=== PATIENT | female | born 1970 | race Caucasian/White ===

== ENCOUNTER → 2022-10-28 | Outpatient (CLI) | payer SELFPAY ==
[2022-10-28 14:06] LABS: BASO % 0.5 % (0.0-1.0); EOS # 0.1 10^3/uL (0.0-0.5); EOS % 1.4 % (0.0-3.0); HEMATOCRIT 44.3 % (36.0-47.0); HEMOGLOBIN 14.6 g/dl (12.0-15.5); LYMPH # 1.9 10^3/uL (1.5-5.0); LYMPH % 22.8 % (24.0-44.0); MEAN CORPUSCULAR HEMOGLOBIN 31.5 pg (27.0-33.0); MEAN CORPUSCULAR VOLUME 95.5 fl (80.0-96.0); MONO # 0.6 10^3/uL (0.0-0.8); MONO % 7.5 % (2.0-8.0); NEUTROPHILS # 5.5 10^3/uL (1.5-8.5); NEUTROPHILS % 67.6 % (36.0-66.0); PLATELET COUNT, AUTOMATED 277 10^3/uL (150-450); RED BLOOD COUNT 4.64 10^6/uL (4.00-5.40); WHITE BLOOD COUNT 8.1 10^3/uL (4.0-10.0)
[2022-10-28 14:08] LABS: FREE T4 1.02 NG/DL (0.89-1.76)
[2022-10-28 14:09] LABS: ALBUMIN 3.9 G/DL (3.2-5.2); ALKALINE PHOSPHATASE 79 U/L (46-116); ALT/SGPT 14 U/L (7.0-40); AST/SGOT < 8 U/L (<34); BILIRUBIN,TOTAL 1.4 MG/DL (0.3-1.2); BLOOD UREA NITROGEN 12 MG/DL (9-23); CALCIUM LEVEL 9.7 MG/DL (8.5-10.1); CARBON DIOXIDE LEVEL 30 MMOL/L (20-31); CHLORIDE LEVEL 105 MMOL/L (98-107); CHOLESTEROL LEVEL 135 MG/DL (<200); CHOLESTEROL RISK RATIO 2.36 (<5); CREATININE FOR GFR 0.69 MG/DL (0.55-1.30); FERRITIN 45.7 NG/ML (7.3-270.7); GLOMERULAR FILTRATION RATE > 60.0 (>51); GLUCOSE, FASTING 88 MG/DL (60-100); HDL CHOLESTEROL 57.2 MG/DL (>40); IRON (FE) 99 UG/DL (50-170); LDL CHOLESTEROL 62.8 MG/DL (<100); NON-HDL-C 77.8 MG/DL; PERCENT SATURATION 28.8 % (13.2-45.0); POTASSIUM SERUM 4.5 MMOL/L (3.5-5.1); SODIUM LEVEL 141 MMOL/L (136-145); TOTAL IRON BINDING CAPACITY 344 UG/DL (250-425); TOTAL PROTEIN 6.8 G/DL (5.7-8.2); TRIGLYCERIDES LEVEL 75 MG/DL (<150)
[2022-10-28 14:10] LABS: THYROID STIMULATING HORMONE 0.215 uIU/ML (0.55-4.78)
== END ==
LOC: M PLALAB 10:22
PROVIDERS: ATTEND Nurse Practitioner Family
DX: E61.1 Iron deficiency (principal); E78.5 Hyperlipidemia, unspecified; R53.83 Other fatigue

== ENCOUNTER → 2022-11-10 | Outpatient (CLI) | payer MEDICAID | LOC: M PLAIMG 14:13 | PROVIDERS: ATTEND Physician Assistant | DX: M25.511 Pain in right shoulder (principal) ==

== ENCOUNTER 2022-12-01 13:34 | Emergency (ER) | payer MEDICAID, OTHER ==
[~2022-12-01] VITALS: Ht 170.2 cm; Wt 78.6 kg
[2022-12-01 14:29] LABS: BASO % 0.4 % (0.0-1.0); EOS # 0.1 10^3/uL (0.0-0.5); EOS % 1.7 % (0.0-3.0); HEMATOCRIT 42.6 % (36.0-47.0); HEMOGLOBIN 14.3 g/dl (12.0-15.5); LYMPH # 1.9 10^3/uL (1.5-5.0); LYMPH % 26.4 % (24.0-44.0); MEAN CORPUSCULAR HEMOGLOBIN 30.8 pg (27.0-33.0); MEAN CORPUSCULAR HGB CONC 33.6 g/dl (32.0-36.5); MEAN CORPUSCULAR VOLUME 91.8 fl (80.0-96.0); MONO # 0.6 10^3/uL (0.0-0.8); MONO % 8.3 % (2.0-8.0); NEUTROPHILS # 4.6 10^3/uL (1.5-8.5); NEUTROPHILS % 62.9 % (36.0-66.0); PLATELET COUNT, AUTOMATED 239 10^3/uL (150-450); RED BLOOD COUNT 4.64 10^6/uL (4.00-5.40); WHITE BLOOD COUNT 7.3 10^3/uL (4.0-10.0)
[2022-12-01 14:36] LABS: INR 0.91; PROTHROMBIN TIME 12.4 SECONDS (12.5-14.5)
[2022-12-01 14:37] LABS: PARTIAL THROMBOPLASTIN TIME 29.8 SECONDS (24.8-34.2)
[2022-12-01 14:55] LABS: CK-MB VALUE MASS < 1.0 NG/ML (<3.6); LIPASE 29 U/L (12-53)
[2022-12-01 14:57] LABS: RSV AMPLIFICATION NEGATIVE (NEGATIVE)
[2022-12-01 14:58] LABS: ALBUMIN 3.7 G/DL (3.2-5.2); ALKALINE PHOSPHATASE 78 U/L (46-116); ALT/SGPT 20 U/L (7.0-40); AST/SGOT 12 U/L (<34); BILIRUBIN,DIRECT 0.4 MG/DL (<0.4); BILIRUBIN,TOTAL 1.2 MG/DL (0.3-1.2); BLOOD UREA NITROGEN 16 MG/DL (9-23); CALCIUM LEVEL 9.6 MG/DL (8.5-10.1); CARBON DIOXIDE LEVEL 28 MMOL/L (20-31); CHLORIDE LEVEL 105 MMOL/L (98-107); CPK CREATINE PHOSPHOKINASE 58 U/L (34-145); CREATININE FOR GFR 0.68 MG/DL (0.55-1.30); GLOMERULAR FILTRATION RATE > 60.0 (>51); GLUCOSE, FASTING 106 MG/DL (60-100); MB/CK RELATIVE INDEX 1.72 (< OR =4); POTASSIUM SERUM 4.3 MMOL/L (3.5-5.1); SODIUM LEVEL 139 MMOL/L (136-145); TOTAL PROTEIN 6.6 G/DL (5.7-8.2)
[2022-12-01 15:00] LABS: FREE T4 0.97 NG/DL (0.89-1.76); THYROID STIMULATING HORMONE 0.318 uIU/ML (0.55-4.78)
[2022-12-01] MEDS ORDERED: ISOVUE-370 76% 100ML VIAL As Ordered ONE (15:26)
[2022-12-01 15:45] LABS: CK-MB VALUE MASS < 1.0 NG/ML (<3.6)
[2022-12-01 15:46] LABS: CPK CREATINE PHOSPHOKINASE 61 U/L (34-145); MB/CK RELATIVE INDEX 1.63 (< OR =4)
[2022-12-01 18:20] VITALS: BP 112/68
== END 2022-12-01 18:22 | disposition home or self-care (01) ==
LOC: M ED 13:34
DX: R07.9 Chest pain, unspecified (principal); E04.2 Nontoxic multinodular goiter; E78.5 Hyperlipidemia, unspecified; F17.210 Nicotine dependence, cigarettes, uncomplicated; Z79.899 Other long term (current) drug therapy
CPT/HCPCS: 70498; 71045; 71275; 76536; 80048; 80076; 82550; 82553; 83690; 84439; 84443; 85025; 85610; 85730; 87631; 93005; 93041; 94760; 99285; Q9967

== ENCOUNTER 2023-05-29 10:05 | Observation (INO) | payer OTHER ==
[~2023-05-29] VITALS: Ht 172.7 cm; Wt 90.1 kg
[~2023-05-29 10:05] MED LIST: ASHW300C2 PO; ASPI81TA26 PO; MECL-136 PO; OMEP-173 PO; SIMV40TA20 PO
[2023-05-29] MEDS ORDERED: LR 1,000 ML IV SCH (10:20)
[2023-05-29] MEDS ORDERED: HYDROmorphone HCL 2MG/ML 1ML VIAL As Ordered ONE (14:15)
[2023-05-29] MEDS ORDERED: MIDAZOLAM INJ 2MG/2ML VIAL As Ordered ONE (14:16)
[2023-05-29] MEDS ORDERED: SUCCINYLCHOLINE 100MG/5ML SYRINGE As Ordered ONE (14:16)
[2023-05-29] MEDS ORDERED: ONDANSETRON 4MG 2ML VIAL As Ordered ONE (14:16)
[2023-05-29] MEDS ORDERED: ROCURONIUM BROMIDE 50MG/5ML VIAL As Ordered ONE (14:16)
[2023-05-29] MEDS ORDERED: fentaNYL 100 MCG/2 ML INJECTION As Ordered ONE (14:16)
[2023-05-29] MEDS ORDERED: propofoL 200 MG/20 ML VIAL As Ordered ONE (14:16)
[2023-05-29] MEDS ORDERED: LIDOCAINE 2% 100MG/5ML SDV (FOR ANES.) As Ordered ONE (14:16)
[2023-05-29] MEDS ORDERED: ACETAMINOPHEN 1000MG 100ML IV BAG As Ordered ONE (14:22)
[2023-05-29] MEDS ORDERED: LIDOCAINE W/EPINEPHRINE 1% 20ML VIAL As Ordered ONE (15:47)
[2023-05-29] MEDS ORDERED: HYDROMORPHONE HCL 0.5 MG/ 0.5 ML SYRINGE IV PRN ×2 (19:30→21:00)
[2023-05-29] MEDS ORDERED: fentaNYL 100 MCG/2 ML INJECTION IV PRN (19:30)
[2023-05-29] MEDS ORDERED: ONDANSETRON 4MG 2ML VIAL IV PRN (19:30)
[2023-05-29] MEDS ORDERED: oxyCODONE 5MG TAB PO PRN (19:30)
[2023-05-29 20:50] VITALS: BP 108/72; TEMP 98.6; O2SAT 97
[2023-05-29] MEDS ORDERED: ACETAMINOPHEN TAB 650MG DOSE (2X325MG) PO PRN (21:00)
[2023-05-29 21:20] VITALS: BP 106/68; TEMP 97.7; O2SAT 96
[2023-05-29 21:33] LABS: HEMATOCRIT 39.3 % (36.0-47.0); HEMOGLOBIN 13.3 g/dl (12.0-15.5); MEAN CORPUSCULAR HEMOGLOBIN 31.2 pg (27.0-33.0); MEAN CORPUSCULAR HGB CONC 33.8 g/dl (32.0-36.5); MEAN CORPUSCULAR VOLUME 92.3 fl (80.0-96.0); PLATELET COUNT, AUTOMATED 202 10^3/uL (150-450); RED BLOOD COUNT 4.26 10^6/uL (4.00-5.40); WHITE BLOOD COUNT 17.3 10^3/uL (4.0-10.0)
[2023-05-29 21:50] VITALS: BP 107/70; TEMP 97.5; O2SAT 99
[2023-05-29] MEDS ORDERED: HOME MED LIST COMPLETE! XX SCH (21:50)
[2023-05-29 22:01] LABS: ALBUMIN 3.2 G/DL (3.2-5.2); ALKALINE PHOSPHATASE 80 U/L (46-116); ALT/SGPT 15 U/L (7.0-40); AST/SGOT 14 U/L (<34); BILIRUBIN,TOTAL 1.5 MG/DL (0.3-1.2); BLOOD UREA NITROGEN 13 MG/DL (9-23); CALCIUM LEVEL 8.8 MG/DL (8.5-10.1); CARBON DIOXIDE LEVEL 24 MMOL/L (20-31); CHLORIDE LEVEL 108 MMOL/L (98-107); CREATININE FOR GFR 0.63 MG/DL (0.55-1.30); GLOMERULAR FILTRATION RATE > 60.0 (>51); GLUCOSE, FASTING 164 MG/DL (60-100); POTASSIUM SERUM 4.2 MMOL/L (3.5-5.1); SODIUM LEVEL 141 MMOL/L (136-145); TOTAL PROTEIN 6.2 G/DL (5.7-8.2)
[2023-05-29 22:50] VITALS: BP 111/75; TEMP 98.1; O2SAT 98
[2023-05-29 23:50] VITALS: BP 110/76; TEMP 97.3; O2SAT 96
[2023-05-30] VITALS (7 sets, daily range): BP systolic 98–120; BP diastolic 60–74; TEMP 97.7–98.8; O2SAT 94–99
[2023-05-30 06:51] LABS: BLOOD UREA NITROGEN 16 MG/DL (9-23); CARBON DIOXIDE LEVEL 23 MMOL/L (20-31); CHLORIDE LEVEL 105 MMOL/L (98-107); CREATININE FOR GFR 0.63 MG/DL (0.55-1.30); GLOMERULAR FILTRATION RATE > 60.0 (>51); GLUCOSE, FASTING 157 MG/DL (60-100); POTASSIUM SERUM 4.7 MMOL/L (3.5-5.1); SODIUM LEVEL 137 MMOL/L (136-145)
[2023-05-30] MEDS ORDERED: MECLIZINE 12.5 MG TAB PO PRN (07:25)
[2023-05-30] MEDS ORDERED: oxyCODONE 5MG TAB PO PRN (08:35)
[2023-05-30] MEDS ORDERED: HYDROMORPHONE HCL 0.5 MG/ 0.5 ML SYRINGE IV PRN (08:35)
[2023-05-30] MEDS ORDERED: ASPIRIN 81MG ENTERIC TABLET PO SCH (09:00)
[2023-05-30] MEDS: PANTOPRAZOLE 40MG VIAL IV SCH (09:28)
[2023-05-30] MEDS: SIMVASTATIN 40 MG TAB PO SCH (09:29)
[2023-05-30] MEDS: ONDANSETRON 4MG 2ML VIAL IV PRN ×2 (09:40→16:25)
[2023-05-30] MEDS ORDERED: PERCOCET 5MG/325MG TAB PO PRN (10:20)
[2023-05-30] MEDS ORDERED: MECLIZINE 12.5 MG TAB PO ONE (10:20)
[2023-05-30] MEDS ORDERED: MECLIZINE 25 MG TABLET PO PRN (11:25)
[2023-05-30] MEDS: PERCOCET 5MG/325MG TAB PO PRN (16:25)
[2023-05-30] MEDS ORDERED: LR 1,000 ML IV ONE (17:30)
[2023-05-31 02:00] VITALS: BP 116/59; TEMP 98.1; O2SAT 97
[2023-05-31] MEDS: PERCOCET 5MG/325MG TAB PO PRN (05:33)
[2023-05-31 05:34] VITALS: BP 107/69; TEMP 97.9; O2SAT 96
[2023-05-31 06:03] LABS: BASO % 0.2 % (0.0-1.0); EOS % 0.3 % (0.0-3.0); HEMATOCRIT 33.8 % (36.0-47.0); LYMPH # 2.6 10^3/uL (1.5-5.0); LYMPH % 29.4 % (24.0-44.0); MEAN CORPUSCULAR HEMOGLOBIN 31.2 pg (27.0-33.0); MEAN CORPUSCULAR HGB CONC 33.4 g/dl (32.0-36.5); MEAN CORPUSCULAR VOLUME 93.4 fl (80.0-96.0); MONO # 0.7 10^3/uL (0.0-0.8); MONO % 7.5 % (2.0-8.0); NEUTROPHILS # 5.4 10^3/uL (1.5-8.5); NEUTROPHILS % 62.4 % (36.0-66.0); PLATELET COUNT, AUTOMATED 196 10^3/uL (150-450); RED BLOOD COUNT 3.62 10^6/uL (4.00-5.40); WHITE BLOOD COUNT 8.7 10^3/uL (4.0-10.0)
[2023-05-31 06:04] LABS: HEMOGLOBIN 11.3 g/dl (12.0-15.5)
[2023-05-31 06:33] VITALS: O2SAT 95
[2023-05-31] MEDS: SIMVASTATIN 40 MG TAB PO SCH (08:01)
[2023-05-31] MEDS: PANTOPRAZOLE 40MG VIAL IV SCH (08:01)
[2023-05-31 08:04] LABS: BLOOD UREA NITROGEN 9 MG/DL (9-23); CALCIUM LEVEL 8.4 MG/DL (8.5-10.1); CARBON DIOXIDE LEVEL 30 MMOL/L (20-31); CHLORIDE LEVEL 106 MMOL/L (98-107); CREATININE FOR GFR 0.64 MG/DL (0.55-1.30); GLOMERULAR FILTRATION RATE > 60.0 (>51); GLUCOSE, FASTING 103 MG/DL (60-100); SODIUM LEVEL 140 MMOL/L (136-145)
[2023-05-31] MEDS ORDERED: SODIUM CHLORIDE NASAL 0.65% SPRAY BTL (OCEAN) PRN (08:15)
[2023-05-31] MEDS ORDERED: PERCOCET PO ×2 (09:27→10:15)
== END 2023-05-31 11:01 | disposition home or self-care (01) ==
LOC: M SDC 10:05 → M ED INP 10:06 → M MSPAV 20:44
PROVIDERS: ADMIT Otolaryngology; ATTEND Otolaryngology
DX: D34 Benign neoplasm of thyroid gland (principal); E06.3 Autoimmune thyroiditis; R42 Dizziness and giddiness; E78.5 Hyperlipidemia, unspecified; K21.9 Gastro-esophageal reflux disease without esophagitis; Z86.73 Personal history of transient ischemic attack (TIA), and cerebral infarction without residual deficits; Z88.8 Allergy status to other drugs, medicaments and biological substances; Z88.5 Allergy status to narcotic agent; Z79.899 Other long term (current) drug therapy; Z87.828 Personal history of other (healed) physical injury and trauma; F17.290 Nicotine dependence, other tobacco product, uncomplicated
CPT/HCPCS: 36415; 60220; 80048; 80053; 85025; 85027; 88307; 96361; 96374; 96375; 96376; C9113; J0131; J0330; J1100; J1170; J2250; J2405; J3010

== ENCOUNTER → 2023-10-06 | Outpatient (CLI) | payer OTHER ==
[~2023-10-06] MED LIST changes: +PERCOCET PO
== END ==
LOC: M WHC 09:22
PROVIDERS: ATTEND Nurse Practitioner Family
DX: Z12.31 Encounter for screening mammogram for malignant neoplasm of breast (principal)

== ENCOUNTER → 2023-10-31 | Outpatient (CLI) | payer OTHER | LOC: M WHC 12:22 | PROVIDERS: ATTEND Nurse Practitioner Family | DX: Z12.31 Encounter for screening mammogram for malignant neoplasm of breast (principal) ==

== ENCOUNTER → 2024-06-13 | Outpatient (CLI) | payer OTHER ==
[2024-06-13 15:19] LABS: BASO % 0.4 % (0.0-1.0); EOS # 0.1 10^3/uL (0.0-0.5); EOS % 1.5 % (0.0-3.0); HEMATOCRIT 43.9 % (36.0-47.0); HEMOGLOBIN 14.3 g/dl (12.0-15.5); LYMPH # 1.9 10^3/uL (1.5-5.0); LYMPH % 27.1 % (24.0-44.0); MEAN CORPUSCULAR HEMOGLOBIN 29.7 pg (27.0-33.0); MEAN CORPUSCULAR HGB CONC 32.6 g/dl (32.0-36.5); MEAN CORPUSCULAR VOLUME 91.1 fl (80.0-96.0); MONO # 0.6 10^3/uL (0.0-0.8); NEUTROPHILS # 4.5 10^3/uL (1.5-8.5); NEUTROPHILS % 62.9 % (36.0-66.0); PLATELET COUNT, AUTOMATED 291 10^3/uL (150-450); RED BLOOD COUNT 4.82 10^6/uL (4.00-5.40); WHITE BLOOD COUNT 7.1 10^3/uL (4.0-10.0)
[2024-06-13 15:23] LABS: ALBUMIN 3.7 G/DL (3.2-5.2); ALKALINE PHOSPHATASE 113 U/L (35-104); ALT/SGPT 21 U/L (7.0-40); AST/SGOT 15 U/L (<34); BLOOD UREA NITROGEN 10 MG/DL (9-23); CALCIUM LEVEL 10.2 MG/DL (8.5-10.1); CARBON DIOXIDE LEVEL 29 MMOL/L (20-31); CHLORIDE LEVEL 106 MMOL/L (98-107); CHOLESTEROL LEVEL 150 MG/DL (<200); CHOLESTEROL RISK RATIO 2.97 (<5); CREATININE FOR GFR 0.78 MG/DL (0.55-1.30); GLOMERULAR FILTRATION RATE > 60.0 (>51); GLUCOSE, FASTING 89 MG/DL (60-100); HDL CHOLESTEROL 50.5 MG/DL (>40); LDL CHOLESTEROL 80.3 MG/DL (<100); NON-HDL-C 99.5 MG/DL; POTASSIUM SERUM 4.7 MMOL/L (3.5-5.1); SODIUM LEVEL 139 MMOL/L (136-145); TOTAL PROTEIN 7.3 G/DL (5.7-8.2); TRIGLYCERIDES LEVEL 96 MG/DL (<150)
[2024-06-13 15:27] LABS: FREE T4 1.08 NG/DL (0.89-1.76); THYROID STIMULATING HORMONE 4.819 uIU/ML (0.55-4.78)
== END ==
LOC: M PLALAB 11:38
PROVIDERS: ATTEND Nurse Practitioner Family
DX: E89.0 Postprocedural hypothyroidism (principal)

== ENCOUNTER → 2025-01-23 | Outpatient (CLI) | payer OTHER | LOC: M WHC 13:47 | PROVIDERS: ATTEND Nurse Practitioner Family | DX: E89.0 Postprocedural hypothyroidism (principal) ==

== ENCOUNTER → 2025-02-06 | Outpatient (RCR) | payer OTHER | LOC: M PT 01-20 09:22 | PROVIDERS: ATTEND Nurse Practitioner Family | DX: M25.552 Pain in left hip (principal); M54.50 Low back pain, unspecified ==

== ENCOUNTER → 2025-03-05 | Outpatient (CLI) | payer OTHER ==
[2025-03-05 16:16] LABS: FREE T4 1.14 NG/DL (0.89-1.76)
[2025-03-05 16:19] LABS: THYROGLOBULIN ANTIBODY 67.0 U/ML (<60.0); TOTAL T3 109.8 NG/DL (60.0-181.0)
[2025-03-05 16:25] LABS: THYROID PEROXIDASE ANTIBODY > 1300.0 U/ML (<60.0)
== END ==
LOC: M PLALAB 13:06
PROVIDERS: ATTEND Otolaryngology
DX: D44.0 Neoplasm of uncertain behavior of thyroid gland (principal)

== ENCOUNTER 2025-03-07 09:35 | Outpatient (RCR) | payer OTHER | END 2025-03-09 | LOC: M PT 09:35 | PROVIDERS: ATTEND Nurse Practitioner Family | DX: M25.552 Pain in left hip (principal); M54.50 Low back pain, unspecified ==

== ENCOUNTER 2025-03-27 09:39 | Outpatient (RCR) | payer OTHER | END 2025-04-08 | LOC: M PT 09:39 | PROVIDERS: ATTEND Nurse Practitioner Family | DX: M25.552 Pain in left hip (principal); M54.50 Low back pain, unspecified ==

== ENCOUNTER → 2025-04-08 | Outpatient (CLI) | payer OTHER | LOC: M PLAIMG 11:56 | PROVIDERS: ATTEND Otolaryngology | DX: D44.0 Neoplasm of uncertain behavior of thyroid gland (principal) ==